=== PATIENT | female | born 1970 | race Hispanic/Latino ===

== ENCOUNTER → 2022-01-18 | Outpatient (CLI) | payer BC, OTHER | END | disposition home or self-care (01) | LOC: RAH 13:29 | PROVIDERS: ATTEND Nurse Practitioner Family | DX: Z12.31 Encounter for screening mammogram for malignant neoplasm of breast (principal) | CPT/HCPCS: 77067 ==

== ENCOUNTER → 2022-02-05 | Outpatient (CLI) | payer BC, OTHER | END | disposition home or self-care (01) | LOC: RAH 08:42 | PROVIDERS: ATTEND Internal Medicine Gastroenterology | DX: K30 Functional dyspepsia (principal); R11.2 Nausea with vomiting, unspecified; R14.0 Abdominal distension (gaseous) | CPT/HCPCS: 78264; A9541 ==

== ENCOUNTER → 2023-10-05 | Outpatient (CLI) | payer OTHER | END | disposition home or self-care (01) | LOC: RAH 15:55 | PROVIDERS: ATTEND Nurse Practitioner Family | DX: Z12.31 Encounter for screening mammogram for malignant neoplasm of breast (principal) | CPT/HCPCS: 77067 ==

== ENCOUNTER 2024-09-17 13:12 | Emergency (ER) | payer BC, OTHER ==
[~2024-09-17] VITALS: Ht 162.6 cm; Wt 81.6 kg
[2024-09-17 13:52] LABS: BASOPHILS # (AUTO) 0.02 K/uL (0.00-0.20); BASOPHILS % (AUTO) 0.2 % (0.0-5.0); EOSINOPHILS # (AUTO) 0.19 K/uL (0.00-0.70); HEMATOCRIT 38.4 % (36-48); IMMATURE GRANULOCYTE ABSOLUTE 0.03 K/uL (0-1); LYMPHOCYTES # (AUTO) 2.8 K/uL (1.0-4.8); LYMPHOCYTES % (AUTO) 30.5 % (21.0-51.0); MEAN CORPUSCULAR HEMOGLOBIN 29.5 pg (27.0-33.0); MEAN CORPUSCULAR HGB CONC 33.3 g/dL (32.0-36.0); MEAN CORPUSCULAR VOLUME 88.5 fL (79-99); NEUTROPHILS # (AUTO) 5.2 K/uL (1.8-7.7); PLATELET COUNT (AUTO) 241 K/uL (130-400); RED BLOOD CELL COUNT(AUTO) 4.34 MIL/uL (4.00-5.50); RED CELL DISTRIBUTION WIDTH 13.3 % (11.0-15.5); WHITE BLOOD COUNT (AUTO) 9.3 K/uL (4.8-10.8)
[2024-09-17 14:04] LABS: INR 0.97 (0.85-1.15); PROTHROMBIN TIME 10.9 SEC (9.6-11.6)
[2024-09-17 14:06] LABS: PARTIAL THROMBOPLASTIN TIME 27.3 SEC (26.3-35.5)
[2024-09-17 14:09] LABS: CREATININE 0.7 mg/dL (0.5-1.0); MAGNESIUM 1.2 mg/dL (1.80-2.40); POTASSIUM 3.1 mmol/L (3.5-5.1)
[2024-09-17 14:21] LABS: B-TYPE NATRIURETIC PEPTIDE 62 pg/mL (0-100)
--- NOTE | 2024-09-17 14:24 | ERN ---
General Chief Complaint: Hypertension Stated Complaint: BLOOD PRESSURE OVER 200 Time Seen by MD: 13:13 Source: patient History of Present Illness Initial Comments PATIENT IS A 54-YEAR-OLD FEMALE COMING IN TO BE EVALUATED FOR HIGH BLOOD PRESSURE. PATIENT STATES THAT SHE DOES HAVE A HISTORY OF HYPERTENSION BUT LATELY HAS BEEN UNDER LOT OF STRESS NOTICED HER BLOOD PRESSURE EARLIER LAST NIGHT AND WAS CONCERNED SO SHE DECIDED TO COME IN TO BE EVALUATED. PATIENT ALSO STATES THAT SHE HAD MILD CHEST PRESSURE. Allergies: Coded Allergies: lisinopril (Unverified Allergy, Unknown, 09/17/24) Past Medical History Past Medical History: Diabetes-Type II, High Cholesterol, Hypertension, Hypothyroid Past Surgical History: None ROS Dictation CONSTITUTIONAL: NO CHILLS, NO FEVER, NO WEAKNESS, NO DIAPHORESIS, NO MALAISE. HEAD/FACE: NO SIGNS OF TRAUMA. EENT: NO EYE PAIN, NO BLURRED VISION, NO TEARING, NO DOUBLE VISION, NO EAR PAIN, NO EAR DISCHARGE, NO NOSE PAIN, NO NASAL CONGESTION, NO THROAT PAIN, NO THROAT SWELLING, NO MOUTH PAIN. RESPIRATORY: NO COUGH, NO ORTHOPNEA, NO SOB, NO STRIDOR, NO WHEEZING. CARDIOVASCULAR: NO CHEST PAIN, NO EDEMA, NO PALPITATIONS, NO SYNCOPE. GASTROINTESTINAL/ABDOMINAL: NO ABDOMINAL PAIN, NO CONSTIPATION, NO DIARRHEA, NO NAUSEA, NO VOMITING. GENITOURINARY: NO ABNORMAL DISCHARGE, NO DYSURIA, NO FREQUENT URINATION, NO HEMATURIA. NO COMPLAINTS OF PAIN IN THE GENITALS. MUSCULOSKELETAL: NO BACK PAIN, NO GOUT, NO JOINT PAIN, NO JOINT SWELLING, NO MUSCLE PAIN, NO MUSCLE STIFFNESS, NO NECK PAIN. INTEGUMENTARY: NO CHANGE IN COLOR, NO CHANGE IN HAIR/NAILS, NO DRYNESS, NO LESION, NO LUMPS, NO RASH. NEUROLOGICAL/PSYCH: NO ANXIETY, NOT DEPRESSED, NO EMOTIONAL PROBLEM, NO HEADACHE, NO NUMBNESS, NO PRE-EXISTING DEFICIT, NO HISTORY OF SEIZURES, NO TREMORS, NO WEAKNESS. HEMATOLOGIC/LYMPHATIC: NOT ANEMIC, NO HISTORY OF BLOOD CLOTS, NO APPARENT BLEEDING, NO BRUISING, GLANDS NOT SWOLLEN. ALL SYSTEMS NEGATIVE, EXCEPT NOTED. Results Laboratory and Microbiology Lab and Micro Result Laboratory Tests Test 09/17/24 13:42 09/17/24 15:35 White Blood Count 9.3 K/uL (4.8-10.8) Red Blood Count 4.34 MIL/uL (4.00-5.50) Hemoglobin 12.8 g/dL (12.0-16.0) Hematocrit 38.4 % (36-48) Mean Corpuscular Volume 88.5 fL (79-99) Mean Corpuscular Hemoglobin 29.5 pg (27.0-33.0) Mean Corpuscular Hemoglobin Concent 33.3 g/dL (32.0-36.0) Red Cell Distribution Width 13.3 % (11.0-15.5) Platelet Count 241 K/uL (130-400) Mean Platelet Volume 10.9 fL (7.5-10.5) H Immature Granulocyte % (Auto) 0.3 % (0-1) Neutrophils (%) (Auto) 56.0 % (40.0-77.0) Lymphocytes (%) (Auto) 30.5 % (21.0-51.0) Monocytes (%) (Auto) 11.0 % (3.0-13.0) Eosinophils (%) (Auto) 2.0 % (0.0-8.0) Basophils (%) (Auto) 0.2 % (0.0-5.0) Neutrophils # (Auto) 5.2 K/uL (1.8-7.7) Lymphocytes # (Auto) 2.8 K/uL (1.0-4.8) Monocytes # (Auto) 1.0 K/uL (0.1-1.0) Eosinophils # (Auto) 0.19 K/uL (0.00-0.70) Basophils # (Auto) 0.02 K/uL (0.00-0.20) Absolute Immature Granulocyte (auto 0.03 K/uL (0-1) Nucleated Red Blood Cells 0.0 % (0.0-0.19) Prothrombin Time 10.9 SEC (9.6-11.6) Prothromb Time International Ratio 0.97 (0.85-1.15) Activated Partial Thromboplast Time 27.3 SEC (26.3-35.5) Sodium Level 144 mmol/L (136-145) Potassium Level 3.1 mmol/L (3.5-5.1) L Chloride Level 104 mmol/L (101-111) Carbon Dioxide Level 30 mmol/L (21-32) Blood Urea Nitrogen 13 mg/dL (7-18) Creatinine 0.7 mg/dL (0.5-1.0) Glomerular Filtration Rate Calc 102 mL/min (>90) Random Glucose 169 mg/dL (70-105) H Total Calcium 9.3 mg/dL (8.5-10.1) Magnesium Level 1.20 mg/dL (1.80-2.40) L Total Creatine Kinase 54 U/L (21-232) Troponin I High Sensitivity 5 ng/L (4-50) B-Type Natriuretic Peptide 62 pg/mL (0-100) Urine Color LIGHT-YELLOW (YELLOW) Urine Appearance CLEAR (CLEAR) Urine pH 5.5 (5.0-8.0) Urine Specific [place] 1.016 (1.001-1.031) Urine Protein NEGATIVE mg/dL (NEGATIVE) Urine Glucose (UA) 200 mg/dL (NEGATIVE) H Urine Ketones NEGATIVE mg/dL (NEGATIVE) Urine Occult Blood NEGATIVE (NEGATIVE) Urine Nitrate NEGATIVE (NEGATIVE) Urine Bilirubin NEGATIVE mg/dL (NEGATIVE) Urine Urobilinogen 0.2 mg/dL (0.2-1.0) Urine Leukocyte Esterase 25 Kyle/uL (NEGATIVE) H Labs Reviewed?: Yes EKG/XRAY/US/CT/MRI EKG Comment 09/17/2024 TIME 1:46 P.M. VENTRICULAR RATE 71 SINUS RHYTHM FL [address] WAVE ELEVATION OR DEPRESSION X-RAY Comment IMAGING REPORT Signed PATIENT: YOANNA KATZ MR#: [id number] : 1970 SEX: F AGE: 54 LOCATION: [facility] ORDER [id number] STATUS: REG REPORT#: [id number] SERVICE [id number] REASON: PRESSURE ORDERING PHYSICIAN: SHELLI CAREY MD PROCEDURE: CXR1VW - CHEST 1VW CHEST 1VW HISTORY: Fracture COMPARISON: None FINDINGS: A frontal projection of the chest was obtained. No acute pulmonary infiltrates is seen. The heart is normal in size. Prominent interstitial markings are seen. No evidence of aortic calcification is seen. IMPRESSION: 1. No acute pulmonary infiltrate is seen. DICTATED BY: JONNY LEE MD DATE: 09/17/24 1431 ELECTRONICALLY SIGNED BY: JONNY LEE MD DATE: 09/17/24 1442 [facility] MDM: DIFFERENTIAL DIAGNOSIS: HYPERTENSION, ANXIETY, STRESS Patient is a 54-year-old female coming in to be evaluated for elevated blood pressure she does have a history of high blood pressure but has been under lot of stress in his the pressure has been elevated throughout ER visit patient has been stable laboratory workup negative for acute findings mildly decreased potassium and magnesium were replaced. Patient will be discharged with a diagnosis of chronic hypertension and hypomagnesemia and hypokalemia. ED Course Orders Procedure Category Date Status Time Cbc With Differential LAB 09/17/24 Complete 13:37 Prothrombin Time With LAB 09/17/24 Complete INR 13:37 B-Type Natriuretic LAB 09/17/24 Complete Peptide 13:37 Chest 1vw RAD 09/17/24 Resulted 13:37 12 Lead Ekg Tracing- EKG 09/17/24 Logged Technical 13:37 Magnesium LAB 09/17/24 Complete 13:37 Creatine Kinase, Total LAB 09/17/24 Complete 13:37 Troponin I High LAB 09/17/24 Complete Sensitivity 13:37 Urinalysis Profile LAB 09/17/24 In Process 13:37 Partial LAB 09/17/24 Complete Thromboplastin Time 13:37 Basic Metabolic Panel LAB 09/17/24 Complete 13:37 Potassium Bicarb/Cit PHA 09/17/24 In Process Ac 25meq (K-Lyte Ta 16:00 Magnesium 2gm Premix PHA 09/17/24 Complete 50ml (Magnesium 2gm 15:51 Current Medications Medications (Trade) Dose Ordered Sig/Kristy Route PRN Reason Start Time Stop Time Status Last Admin Dose Admin Magnesium Sulfate 50 ml @ 0 mls/hr PROTOCOL STAT IV 09/17/24 15:51 09/17/24 15:54 DC Potassium Bicarbonate (K-Lyte Tablet Eff 25 Meq Tablet.eff) 25 meq ONCE ONCE PO 09/17/24 16:00 09/17/24 16:01 Vital Signs Date Time Temp Pulse Resp B/P (MAP) Pulse Ox O2 Delivery O2 Flow Rate FiO2 09/17/24 15:27 98.2 77 15 149/76 97 Room Air* 0 21 09/17/24 13:49 98.4 76 14 178/85 97 Room Air* 0 21 09/17/24 13:22 98.4 78 18 167/98 96 0 DX & DISP Disposition: Discharge Departure Impression: Primary Impression: Chronic hypertension Additional Impressions: Hypomagnesemia, Hypokalemia Condition: Stable Scripts Clonidine HCl (Clonidine HCl) 0.1 Mg Tablet 1 TAB PO HS PRN for IF SBP GREATER THAN 180 for 7 Days, #14 TAB 0 Refills Prov: SHELLI CAREY MD 09/17/24 Additional Instructions: FOLLOW-UP WITH PRIMARY CARE PROVIDER IN 1 TO 2 DAYS. TAKE MEDICATIONS DIRECTED HERE IN THE EMERGENCY ROOM. OKAY TO CONTINUE HOME MEDICATIONS UNLESS OTHERWISE DISCUSSED DURING YOUR VISIT IN THE EMERGENCY ROOM TODAY. RETURN TO YOUR NEAREST EMERGENCY ROOM IF SYMPTOMS WORSEN OR IF THERE IS NO IMPROVEMENT. CALL 911 IF YOU NEED IMMEDIATE ASSISTANCE. TAKE TYLENOL [id number] NEEDED AND IF NO CONTRAINDICATIONS ARE PRESENT. INCREASE ORAL HYDRATION. A WOUND CULTURE OR URINE CULTURE WAS ORDERED HERE IN THE EMERGENCY ROOM DEPARTMENT PLEASE FOLLOW-UP WITH PRIMARY CARE PROVIDER AND ADVISE THEM TO GET REPEAT PORTS FROM OUR FACILITY. IF YOU HAD ANY GENNY WRAP/SPLINTS THAT WERE APPLIED HERE, PLE ASE DO NOT REMOVE THEM UNTIL YOU SEE YOUR PRIMARY CARE OR SPECIALTY. Referrals: Referrals: JEAN WELLS NP (PCP) Time of Disposition: 15:59 SHELLI CAREY MD Sep 17, 2024 14:24
--- NOTE | 2024-09-17 14:44 | HMCIMG ---
CHEST 1VW HISTORY: Fracture COMPARISON: None FINDINGS: A frontal projection of the chest was obtained. No acute pulmonary infiltrates is seen. The heart is normal in size. Prominent interstitial markings are seen. No evidence of aortic calcification is seen. IMPRESSION: 1. No acute pulmonary infiltrate is seen.
[2024-09-17 15:50] LABS: APPEARANCE,URINE CLEAR (CLEAR); BILIRUBIN,URINE NEGATIVE (NEGATIVE); COLOR,URINE LIGHT-YELLOW (YELLOW); GLUCOSE, URINE (UA) 200 mg/dL (NEGATIVE); KETONES,URINE NEGATIVE (NEGATIVE); LEUKOCYTE ESTERASE ,URINE 25 Leu/uL (NEGATIVE); NITRATE,URINE NEGATIVE (NEGATIVE); OCCULT BLOOD,URINE NEGATIVE (NEGATIVE); PH,URINE 5.5 (5.0-8.0); PROTEIN,URINE NEGATIVE (NEGATIVE); UROBILINOGEN,URINE 0.2 mg/dL (0.2-1.0)
[2024-09-17 15:52] LABS: ADD UA MICROSCOPIC YES
[2024-09-17 15:58] LABS: MUCUS,URINE RARE LPF (None Seen); RBC,URINE 0-1 /HPF (0-1); SQUAMOUS EPITHELIAL CELL,UR RARE /HPF (0-2); WBC,URINE 0-1 /HPF (0-1)
[2024-09-17] MEDS ORDERED: CLON0.1T PO (16:00)
[2024-09-17] MEDS: PoTASSium BIcarbonate/CIT AC 25 MEQ TABLET.EFF PO ONE (16:07)
[2024-09-17] MEDS: MAGNESIUM 2GM PREMIX 50ML 50 ML IV STA (16:08)
--- NOTE | 2024-09-17 16:56 | EKG ---
[facility] Test Date: 2024-09-17 Test Time: 13:46:45 Pat Name: YOANNA KATZ Department: ED Room: Gender: F Glass Scullion: [id number] : 1970 Requested By: SHELLI CAREY Order Number: [id number] Reading MD: Jose Macedo Measurements Intervals [place] Rate: 71 P: 13 PA: 137 QRS: -11 QRSD: 93 T: 14 QT: 411 QTc: 447 Interpretive Statements Sinus rhythm No previous ECG available for comparison Electronically Signed On 09-19-2024 21:32:55 SET ILLUSTRATOR by Jose Macedo Please click the below link to view image of tracing.
[2024-09-17 17:30] VITALS: BP 144/84; PULSE 75; RESP 15; TEMP 98.7; O2SAT 95
== END 2024-09-17 17:37 | disposition home or self-care (01) ==
LOC: EDH 13:12
DX: I10 Essential (primary) hypertension (principal); E83.42 Hypomagnesemia; E87.6 Hypokalemia; E78.00 Pure hypercholesterolemia, unspecified; E03.9 Hypothyroidism, unspecified; E11.9 Type 2 diabetes mellitus without complications; Z79.01 Long term (current) use of anticoagulants; Z88.8 Allergy status to other drugs, medicaments and biological substances
CPT/HCPCS: 99284; 96374; 71045; 82550; 83735; 84484; 80048; 83880; 85025; 85610; 85730; 81001; 36415; 93005; J3475

== ENCOUNTER → 2024-10-06 | Outpatient (CLI) | payer BC ==
[~2024-10-06] MED LIST: CLON0.1T PO
--- NOTE | 2024-10-06 12:11 | HMCIMG ---
SCREENING MAMMOGRAM REASON: Annual Exam COMPARISON: 10/05/2023 TECHNIQUE: CC and MLO views of the bilateral breasts were performed.CAD was performed as well. FINDINGS: Parenchymal density: The breasts are heterogeneously dense, which may obscure small masses. There are no focal mass lesions. There are no pathologic appearing calcifications. There is no evidence of architectural distortion or skin thickening. IMPRESSION: Normal screening mammogram The patient was entered into a reminder system with a target due date for their next mammogram. BI-RADS CATEGORY 1: NEGATIVE Recommend monthly self breast exam as well as annual clinical examination. A negative x-ray should not delay biopsy if a dominant or clinically suspicious mass is present, since 8-10% of cancers are not identified by mammography. Dense breasts particularly, may obscure an underlying neoplasm. Some of these may be detected clinically and therefore, clinical examination is an essential part of breast evaluation.
== END | disposition home or self-care (01) ==
LOC: RAH 08:51
PROVIDERS: ATTEND Nurse Practitioner Family
DX: Z12.31 Encounter for screening mammogram for malignant neoplasm of breast (principal); R92.333 Mammographic heterogeneous density, bilateral breasts
CPT/HCPCS: 77067